=== PATIENT | male | born 1970 | race Caucasian/White ===

== ENCOUNTER 2022-11-07 16:33 | Emergency (ER) | payer OTHER, SELFPAY ==
[2022-11-07 16:38] VITALS: BP 130/76; PULSE 70; O2SAT 96
[2022-11-07 17:49] VITALS: BP 133/76; PULSE 67; RESP 18; TEMP 36.5; O2SAT 98; BMI 25.0
--- NOTE | 2022-11-07 18:02 | ED_ITS ---
HPI - General Adult General Chief complaint: Skin/Abscess/Foreign Body <MARIELA Goyal - Last Filed: 11/07/22 18:03> Stated complaint: SWOLLEN LIP <MARIELA Goyal - Last Filed: 11/07/22 18:03> Time Seen by Provider: 11/07/22 19:14 <MARIELA Goyal - Last Filed: 11/07/22 18:03> Source: patient and RN notes reviewed <Darrin Healy - Last Filed: 11/07/22 20:04> Mode of arrival: ambulatory <Darrin Healy - Last Filed: 11/07/22 20:04> Limitations: no limitations <Darrin Healy - Last Filed: 11/07/22 20:04> History of Present Illness HPI narrative: 51-year-old male past medical history significant for substance abuse currently on methadone presents for evaluation of lip pain and swelling patient reports that he 1st noticed swelling to the lower lip on the right side yesterday. When he woke up this morning the pain was significantly worse the swelling he reports has been getting worse throughout the day he has not had any recent medication changes, he has been on methadone for quite some time. He is not on any other medications, has not taken any [id number] medications denies any new foods denies any shortness of breath difficulty swallowing or change in his voice <Darrin Healy - Last Filed: 11/07/22 20:04> Related Data Home medications: Previous Rx's Medication Instructions Recorded clindamycin HCl 300 mg capsule 300 mg PO TID #21 caps 11/07/22 ibuprofen 600 mg tablet 600 mg PO TID PRN pain #20 tabs 11/07/22 valacyclovir 1 gram tablet 1,000 mg PO TID #21 tabs 11/07/22 <MARIELA Goyal - Last Filed: 11/07/22 18:03> Allergies/adverse reactions: Allergies Allergy/AdvReac Type Severity Reaction Status Date / Time shellfish derived Allergy Severe THROAT Verified 11/07/22 17:49 [SHELLFISH DERIVED] SWELLING <MARIELA Goyal - Last Filed: 11/07/22 18:03> Review of Systems Constitutional: Constitutional: Reports as per HPI, Denies chills, Denies fatigue, Denies fever(s) and Denies headache(s) <Darrin Healy - Last Filed: 11/07/22 20:04> ENT: Denies headache(s), Reports lip swelling, Denies sore throat, Denies throat swelling and Denies tongue swelling <Darrin Healy - Last Filed: 11/07/22 20:04> Cardiovascular: Cardiovascular: Denies chest pain and Denies dyspnea <Darrin Healy - Last Filed: 11/07/22 20:04> Respiratory: Respiratory: Denies cough and Denies dyspnea <Darrin Healy - Last Filed: 11/07/22 20:04> Gastrointestinal: Gastrointestinal: Denies abdominal pain, Denies constipation and Denies vomiting <Darrin Healy - Last Filed: 11/07/22 20:04> Genitourinary: Genitourinary: Denies difficulty urinating and Denies dysuria <Darrin Healy - Last Filed: 11/07/22 20:04> Neurologic: Denies headache(s) and Denies focal weakness <Darrin Healy - Last Filed: 11/07/22 20:04> Endocrine: Endocrine: Denies fatigue <Darrin Healy - Last Filed: 11/07/22 20:04> Allergic/Immunologic: Allergic/Immunologic: Reports lip swelling, Denies throat swelling and Denies tongue swelling <Darrin Healy - Last Filed: 11/07/22 20:04> [facility] Past Medical History Medical History: Medical History (Updated 11/07/22 @ 19:53 by Darrin Healy) Abscess Hx of substance abuse <MARIELA Goyal - Last Filed: 11/07/22 18:03> Social History Social History: Social History Alcohol intake: never Smoked in Last 30 Days: Yes Use of substances other than those prescribed or required for medical reasons: No Advance Directives: No Advance Directives Information Provided: No <MARIELA Goyal - Last Filed: 11/07/22 18:03> Physical Exam ED Vital Signs: Vital Signs - 24 hr 11/07/22 17:49 11/07/22 18:39 Temperature 97.7 F 99.2 F Pulse Rate 67 58 Respiratory Rate 18 18 Blood Pressure 133/76 106/88 Pulse Oximetry 98 100 Oxygen Delivery Method Room Air BMI result Body Mass Index 25.0 <MARIELA Goyal - Last Filed: 11/07/22 18:03> Vital Signs - 24 hr 11/07/22 17:49 11/07/22 18:39 Temperature 97.7 F 99.2 F Pulse Rate 67 58 Respiratory Rate 18 18 Blood Pressure 133/76 106/88 Pulse Oximetry 98 100 Oxygen Delivery Method Room Air BMI result Body Mass Index 25.0 <Darrin StackFrontier - Last Filed: 11/07/22 20:04> Const General: healthy appearing, comfortable, no acute distress, alert and awake <Darrin O - Last Filed: 11/07/22 20:04> Nutritional Appearance: well nourished <Darrin - Last Filed: 11/07/22 20:04> Orientation/consciousness: patient oriented x3 <Darrin - Last Filed: 11/07/22 20:04> HENMT Other: The lip is dry, cracked. patient is a markedly edematous lower lip right greater than left. the area is significantly indurated without fluctuance. There is some erythema extending down to below the lip margin onto the chin. The patient does have right submandibular lymphadenopathy. There is no intraoral or retropharyngeal edema or lesions. <Darrin StackXander - Last Filed: 11/07/22 20:04> Head: Yes normocephalic and Yes atraumatic <Darrin OFrontier - Last Filed: 11/07/22 20:04> Ears: external ears normal and TM's normal bilaterally <Darrin O - Last Filed: 11/07/22 20:04> Mouth: Normal oral and palatal mucosa present and lip abnormal <Darrin O - Last Filed: 11/07/22 20:04> Throat: Yes posterior oropharynx normal <Darrin OXander - Last Filed: 11/07/22 20:04> Eyes Eyelids: Yes eyelids normal <Darrin StackXander - Last Filed: 11/07/22 20:04> Conjunctivae: conjunctivae normal <Darrin OFrontier - Last Filed: 11/07/22 20:04> Sclerae: sclerae normal <Darrin Last Filed: 11/07/22 20:04> Corneas: corneas normal <Darrin Last Filed: 11/07/22 20:04> Pupils: Equal, round and reactive pupils present <Darrin Last Filed: 11/07/22 20:04> EOM: EOMs intact bilaterally < Last Filed: 11/07/22 20:04> Neck Neck: Yes full ROM < Last Filed: 11/07/22 20:04> Resp Effort & Inspection: normal respiratory effort, able to speak in complete sentences, no audible wheezes and not labored < Last Filed: 11/07/22 20:04> Auscultation: clear to auscultation bilaterally < Last Filed: 11/07/22 20:04> Cardio Rate: regular rate < Last Filed: 11/07/22 20:04> Rhythm: regular rhythm < Last Filed: 11/07/22 20:04> GI Inspection: No distended < Last Filed: 11/07/22 20:04> Palpation (GI): Soft to palpation, not firm, nontender, no guarding and not rigid < Last Filed: 11/07/22 20:04> Auscultation: normoactive bowel sounds < Last Filed: 11/07/22 20:04> Skin General skin exam: no rashes or lesions noted and elasticity normal < Last Filed: 11/07/22 20:04> Neuro General: patient oriented x3 < Last Filed: 11/07/22 20:04> Cranial nerves: Yes CN's II-XII intact bilaterally, Yes Equal, round and reactive pupils p resent and Yes Bilaterally intact EOM present < Last Filed: 11/07/22 20:04> Cognition (Neuro): normal cognition <Darrin Sreekanth Last Filed: 11/07/22 20:04> Extrem Other: Moving all extremities well without any obvious deformities <Darrin Healy - Last Filed: 11/07/22 20:04> Course Course Course Narrative: RME performed by Lilibeth Mccoy PA-C. Patient is a 51 year old male presenting to the emergency department with a swollen lower lip. Patient is on methadone. Patient is not on lisinopril. Denies eating anything new. Labs ordered. Patient placed back in the waiting room pending room availability and results. <MARIELA Goyal - Last Filed: 11/07/22 18:03> Medications Administered Discontinued Medications Generic Name Dose Route Start Last Admin Trade Name Freq PRN Reason Stop Dose Admin Clindamycin Phosphate 300 mg in 50 mls @ 100 mls/hr 11/07/22 19:31 11/07/22 19:53 Cleocin IV 11/07/22 20:00 100 mls/hr ONCE ONE Administration Ketorolac Tromethamine 30 mg 11/07/22 19:28 11/07/22 19:53 Ketorolac Tromethamine 30 Mg/Ml Vial IVPUSH 11/07/22 19:29 30 mg ONCE ONE Administration <MARIELA Goyal - Last Filed: 11/07/22 18:03> Medications Administered Discontinued Medications Generic Name Dose Route Start Last Admin Trade Name Freq PRN Reason Stop Dose Admin Clindamycin Phosphate 300 mg in 50 mls @ 100 mls/hr 11/07/22 19:31 11/07/22 19:53 Cleocin IV 11/07/22 20:00 100 mls/hr ONCE ONE Administration Ketorolac Tromethamine 30 mg 11/07/22 19:28 11/07/22 19:53 Ketorolac Tromethamine 30 Mg/Ml Vial IVPUSH 11/07/22 19:29 30 mg ONCE ONE Administration <Darrin Healy - Last Filed: 11/07/22 20:04> Medical Decision Making Medical Decision Making MDM Narrative: 51-year-old male reports medical history only of plica abuse currently on methadone. He reports he is not currently taking any street drugs. The patient has an edematous lips. He has erythema and induration. The erythema extends inferior to the lip border. This raises some concern for infectious process. We will call the patient with clindamycin to cover both skin and oral maureen. The patient reports a history of cold sores and we will add on valacyclovir in case this is an atypical herpes presentation. There is no airway involvement, no intraoral involvement. The patient reports he has a PCP and follow up with. is also advised to return for any new or worsening symptoms <Darrin Healy - Last Filed: 11/07/22 20:04> Differential Diagnosis cellulitis Abscess Drew's angina Angioedema Herpes zoster <Darrin Healy - Last Filed: 11/07/22 20:04> Lab Data Result Diagrams: 11/07/22 18:34 11/07/22 18:34 <MARIELA Goyal - Last Filed: 11/07/22 18:03> Labs: Lab Results 11/07/22 11/07/22 11/07/22 Range/Units 18:34 18:34 18:34 WBC 12.7 H (4.8-10.8) X10*3/uL RBC 4.52 L (4.60-5.80) X10*6/uL Hgb 13.1 L (14.0-18.0) g/dl Hct 38.1 L (42.0-52.0) % MCV 84.3 (80.0-98.0) fL MCH 29.0 (27.0-33.0) pg MCHC 34.4 (31.0-36.0) g/dl RDW 12.1 (11.0-16.0) % Plt Count 180 (160-400) X10*3/uL MPV 9.2 L (9.4-12.4) fL Immature Gran % (Auto) 0.6 H (0.0-0.4) % Neut % (Auto) 77.8 H (45-73) % Lymph % (Auto) 9.3 L (20-40) % Harmon % (Auto) 11.8 H (2-11) % Eos % (Auto) 0.3 (0-4) % Baso % (Auto) 0.2 (0-2) % Lymph # (Auto) 1.2 (1.2-4.9) X10*3/uL Harmon # (Auto) 1.5 H (0.1-1.2) X10*3/uL Eos # (Auto) 0.0 (0.0-0.4) X10*3/uL Baso # (Auto) 0.0 (0.0-0.2) X10*3/uL Abs Immat Gran (auto) 0.07 H (0.00-0.03) X10*3/uL Absolute Neuts (auto) 9.9 H (2.0-8.3) x10*3/uL Absolute Nucleated RBC 0.000 (0.0-0.012) X10*3/uL Nucleated RBC % (auto) 0.0 (0.0-0.2) /100WBC ESR 60 H (0-15) MM/HR Sodium 142 (135-145) mmol/L Potassium 3.5 (3.3-5.1) mmol/L Chloride 101 (96-108) mmol/L Carbon Dioxide 29 (22-29) mmol/L Anion Gap 16 (12-20) BUN 12 (9-16) mg/dL Creatinine 0.87 (0.5-1.4) mg/dL Estim Creat Clear Calc 92.8 Estimated GFR > 60 Random Glucose 101 (60-115) mg/dL Calcium 9.0 (8.4-10.2) mg/dL Magnesium 1.8 (1.6-2.6) mg/dL Total Bilirubin 0.7 (0.0-1.0) mg/dL AST 15 (5-37) U/L ALT 8 (0-40) U/L Alkaline Phosphatase 77 (39-117) U/L C-Reactive Protein 14.59 H (< or = 0.50) mg/dL Total Protein 6.5 (6.5-8.0) g/dL Albumin 3.8 (3.5-5.0) g/dL <MARIELA Goyal - Last Filed: 11/07/22 18:03> Lab Results 11/07/22 11/07/22 11/07/22 Range/Units 18:34 18:34 18:34 WBC 12.7 H (4.8-10.8) X10*3/uL RBC 4.52 L (4.60-5.80) X10*6/uL Hgb 13.1 L (14.0-18.0) g/dl Hct 38.1 L (42.0-52.0) % MCV 84.3 (80.0-98.0) fL MCH 29.0 (27.0-33.0) pg MCHC 34.4 (31.0-36.0) g/dl RDW 12.1 (11.0-16.0) % Plt Count 180 (160-400) X10*3/uL MPV 9.2 L (9.4-12.4) fL Immature Gran % (Auto) 0.6 H (0.0-0.4) % Neut % (Auto) 77.8 H (45-73) % Lymph % (Auto) 9.3 L (20-40) % Harmon % (Auto) 11.8 H (2-11) % Eos % (Auto) 0.3 (0-4) % Baso % (Auto) 0.2 (0-2) % Lymph # (Auto) 1.2 (1.2-4.9) X10*3/uL Harmon # (Auto) 1.5 H (0.1-1.2) X10*3/uL Eos # (Auto) 0.0 (0.0-0.4) X10*3/uL Baso # (Auto) 0.0 (0.0-0.2) X10*3/uL Abs Immat Gran (auto) 0.07 H (0.00-0.03) X10*3/uL Absolute Neuts (auto) 9.9 H (2.0-8.3) x10*3/uL Absolute Nucleated RBC 0.000 (0.0-0.012) X10*3/uL Nucleated RBC % (auto) 0.0 (0.0-0.2) /100WBC ESR 60 H (0-15) MM/HR Sodium 142 (135-145) mmol/L Potassium 3.5 (3.3-5.1) mmol/L Chloride 101 (96-108) mmol/L Carbon Dioxide 29 (22-29) mmol/L Anion Gap 16 (12-20) BUN 12 (9-16) mg/dL Creatinine 0.87 (0.5-1.4) mg/dL Estim Creat Clear Calc 92.8 Estimated GFR > 60 Random Glucose 101 (60-115) mg/dL Calcium 9.0 (8.4-10.2) mg/dL Magnesium 1.8 (1.6-2.6) mg/dL Total Bilirubin 0.7 (0.0-1.0) mg/dL AST 15 (5-37) U/L ALT 8 (0-40) U/L Alkaline Phosphatase 77 (39-117) U/L C-Reactive Protein 14.59 H (< or = 0.50) mg/dL Total Protein 6.5 (6.5-8.0) g/dL Albumin 3.8 (3.5-5.0) g/dL <Darrin Healy - Last Filed: 11/07/22 20:04> Discharge Plan Discharge Clinical Impression: Cellulitis of lip <MARIELA Goyal - Last Filed: 11/07/22 18:03> Patient Disposition: Home, Self-Care <MARIELA Goyal - Last Filed: 11/07/22 18:03> Prescriptions: New clindamycin HCl 300 mg capsule 300 mg PO TID Qty: 21 0RF valacyclovir 1 gram tablet 1,000 mg PO TID Qty: 21 0RF ibuprofen 600 mg tablet 600 mg PO TID PRN (Reason: pain) Qty: 20 0RF <MARIELA Goyal - Last Filed: 11/07/22 18:03>
[2022-11-07 18:39] VITALS: BP 106/88; PULSE 58; RESP 18; TEMP 37.3; O2SAT 100
[2022-11-07 18:39] LABS: MANUAL DIFF FLAG NO
[2022-11-07 18:42] LABS: Basophils Percent Auto 0.2 % (0-2); Eosinophils Percent Auto 0.3 % (0-4); Hematocrit 38.1 % (42.0-52.0); Hemoglobin 13.1 g/dl (14.0-18.0); Imm Gran Abs Auto 0.07 X10*3/uL (0.00-0.03); Imm Gran Pct Auto 0.6 % (0.0-0.4); Lymphocytes Absolute Auto 1.2 X10*3/uL (1.2-4.9); Lymphocytes Percent Auto 9.3 % (20-40); Mean Corpuscular HGB Conc 34.4 g/dl (31.0-36.0); Mean Corpuscular Volume 84.3 fL (80.0-98.0); Mean Platelet Volume 9.2 fL (9.4-12.4); Monocytes Absolute Auto 1.5 X10*3/uL (0.1-1.2); Monocytes Percent Auto 11.8 % (2-11); Neutrophils Absolute Auto 9.9 x10*3/uL (2.0-8.3); Neutrophils Percent Auto 77.8 % (45-73); Platelet Count 180 X10*3/uL (160-400); Red Blood Count 4.52 X10*6/uL (4.60-5.80); Red Cell Distribution Width 12.1 % (11.0-16.0); White Blood Count 12.7 X10*3/uL (4.8-10.8)
--- NOTE | 2022-11-07 18:55 | PC.NURSE ---
pt AOx3, VSS. swelling noted to lower lip mostly on the right side, begining yesterday but increasing today. Pt not having difficulty breathing, but reports 10/10 pain in the area. No tongue swelling noted.
[2022-11-07 18:57] LABS: Alanine Aminotransferase 8 U/L (0-40); Albumin Level 3.8 g/dL (3.5-5.0); Alkaline Phosphatase 77 U/L (39-117); Anion Gap 16 (12-20); Aspartate Amino Transferase 15 U/L (5-37); Bilirubin Total 0.7 mg/dL (0.0-1.0); Blood Urea Nitrogen 12 mg/dL (9-16); C Reactive Protein 14.59 mg/dL (< or = 0.50); Carbon Dioxide 29 mmol/L (22-29); Chloride 101 mmol/L (96-108); Creatinine Clr Calc Pharmacy 92.8; Estimated Glomerular Filt Rate > 60; Glucose Random 101 mg/dL (60-115); Magnesium 1.8 mg/dL (1.6-2.6); Potassium 3.5 mmol/L (3.3-5.1); Sodium 142 mmol/L (135-145); Total Protein 6.5 g/dL (6.5-8.0)
[2022-11-07 19:25] LABS: Erythrocyte Sedimentation Rate 60 MM/HR (0-15)
[2022-11-07] MEDS: Clindamycin Phosphate/D5W 300 MG/50 ML PIGGYBACK 100 MG IV (19:53)
[2022-11-07] MEDS: Ketorolac Tromethamine 30 MG/ML VIAL IVPUSH (19:53)
--- NOTE | 2022-11-07 19:55 | PC.NURSE ---
patient a&ox3, pt continues to speak in full sentences/no tongue swelling noted, pt rt lip swelling only, pt medicated with pain meds per order, IV abx started per order, per provider pt did not need blood cultures drawn, call emanuel within reach, will continue to monitor.
[2022-11-07 20:28] VITALS: BP 121/78; PULSE 64; RESP 18; TEMP 37.2; O2SAT 99
== END 2022-11-07 20:54 | disposition home or self-care (01) ==
PROVIDERS: Physician Assistant Medical; Emergency Provider Student in an Organized Health Care Education/Training Program; PCP Internal Medicine
DX: K13.0 Diseases of lips (principal); F19.10 Other psychoactive substance abuse, uncomplicated; F11.20 Opioid dependence, uncomplicated
CPT/HCPCS: 36415; 80053; 83735; 85025; 85652; 86140; 96365; 96375; 99284; 99285; J1885

== ENCOUNTER 2023-05-08 15:16 | Emergency (ER) | payer OTHER, SELFPAY ==
[2023-05-08 16:58] VITALS: BP 144/84; PULSE 73; RESP 18; TEMP 36.8; O2SAT 100; BMI 26.3
--- NOTE | 2023-05-08 17:50 | ED.SKABFB ---
HPI - Skin/Abscess/Foreign Bdy General Chief complaint: Skin/Abscess/Foreign Body Stated complaint: Cyst under R arm Time Seen by Provider: 05/08/23 17:25 Source: patient Mode of arrival: ambulatory Limitations: no limitations History of Present Illness HPI narrative: Patient is a 52 year old male with no PMH who presents to the ED due to an abscess in his right underarm. He reports that it started about a week ago and started off as a little ball under his arm, which has growth in size over time. He denies any trauma to the area or a history of getting cysts. He reports 12 pain and states that the area is erythematous and warm. He denies experiencing fever, chills or seeing any pus or discharge draining from the affected site. Patient has not taken anything OTC to help with the pain. Related Data Previous Rx's Medication Instructions Recorded clindamycin HCl 300 mg capsule 300 mg PO TID #21 caps 11/07/22 ibuprofen 600 mg tablet 600 mg PO TID PRN pain #20 tabs 11/07/22 valacyclovir 1 gram tablet 1,000 mg PO TID #21 tabs 11/07/22 cephalexin 500 mg capsule 500 mg PO BID #14 caps 05/08/23 doxycycline monohydrate 100 mg 100 mg PO BID #14 caps 05/08/23 capsule ibuprofen 800 mg tablet 800 mg PO Q8H PRN pain #30 tabs 05/08/23 Allergies Allergy/AdvReac Type Severity Reaction Status Date / Time No Known Allergies Allergy Verified 05/08/23 17:47 Review of Systems Review of Systems: Yes all other systems are reviewed and are negative Constitutional: Constitutional: Reports no additional constitutional complaints, Denies body ache(s), Denies chills, Denies fever(s), Denies headache(s) and Denies weakness Eyes: Eyes: Reports no additional eye complaints and Denies change in vision ENT: Reports system reviewed and no additional complaints, except as documented, Denies dizziness, Denies headache(s), Denies nasal congestion, Denies nasal discharge and Denies neck pain Cardiovascular: Cardiovascular: Reports no additional cardiovascular complaints, Denies chest pain, Denies leg edema and Denies dyspnea Respiratory: Respiratory: Reports no additional respiratory complaints, Denies cough and Denies dyspnea Gastrointestinal: Gastrointestinal: Reports no additional gastrointestinal complaints, Denies abdominal pain, Denies diarrhea, Denies nausea and Denies vomiting Genitourinary: Genitourinary: Denies urinary incontinence Musculoskeletal: Musculoskeletal: Reports no additional musculoskeletal complaints, Denies back pain, Denies arthralgias, Denies joint swelling, Denies neck pain, Denies numbness and Denies tingling Integumentary/Breasts: Skin/Breast: Reports system reviewed and no additional complaints, except as docu, Reports furuncle, Reports swelling, Reports change in pigmentation, Reports erythema, Denies rash and Reports skin pain Neurologic: Reports system reviewed and no additional complaints, except as documented, Denies Abnormal speech present, Denies dizziness, Denies headache(s), Denies numbness, Denies tingling and Denies weakness [facility] Past Medical History Attestation statement: The following information was validated with the patient. Source: old records reviewed and nursing notes reviewed Medical History Hx of substance abuse Abscess Social History Social History Alcohol intake: never Advance Directives: No Advance Directives Information Provided: No Physical Exam Vital Signs: Vital Signs: Last Vital Signs Temp 98.3 F 05/08/23 16:58 Pulse 73 05/08/23 16:58 Resp 18 05/08/23 16:58 BP 144/84 H 05/08/23 16:58 Pulse Ox 100 05/08/23 16:58 O2 Del Method Room Air 05/08/23 16:58 BMI result Body Mass Index 26.3 Const: General: cooperative, healthy appearing, comfortable and no acute distress Orientation/consciousness: patient oriented x3 Limitations: no limitations HEENT: Head: Yes normal to inspection Ears: hearing grossly normal bilaterally General nose exam: Normal external nose present Face and sinus: Yes normal facial exam Mouth: Normal oral and palatal mucosa present Throat: Yes posterior oropharynx normal Eyes: General: appearance normal, both eyes and all related structures Pupils: Equal, round and reactive pupils present Neck: Neck: Yes normal visual inspection Chest: Chest palpation & inspection: normal inspection of the chest Chest/axillae images: 1. +large abscess with fluctuance and surrounding erythema/warmth and lymphadenopathy Resp: Effort & Inspection: normal respiratory effort Auscultation: clear to auscultation bilaterally Cardio: Rate: regular rate Rhythm: regular rhythm Peripheral pulses: Peripheral pulses 2+ throughout GI: Inspection: Yes normal to inspection Palpation (GI): Soft to palpation and nontender Auscultation: normal bowel sounds Back/Spine/Pelvis: Thoracic/Lumbar Spine: thoracic and lumbar spine normal to inspection Skin: General skin exam: no rashes or lesions noted Neuro: General: patient oriented x3, no focal motor deficits and normal sensation to monofilament Cranial nerves: Yes Equal, round and reactive pupils present Cognition (Neuro): normal cognition Speech: No Abnormal speech present Gait exam (Neuro): Normal gait present Motor exam (neuro): 5/5 motor strength present throughout Extrem: General: Yes normal to inspection Medications Administered Discontinued Medications Generic Name Dose Route Start Last Admin Trade Name Louisq PRN Reason Stop Dose Admin Ketorolac Tromethamine 60 mg 05/08/23 18:19 05/08/23 18:21 Ketorolac Tromethamine 60 Mg/2 Ml Vial IM 05/08/23 18:20 60 mg ONCE ONE Administration Lidocaine HCl 5 ml 05/08/23 17:47 05/08/23 18:13 Lidocaine Hcl 1 % Mpf 5 Ml Vial SUBCUT 05/08/23 17:48 5 ml ONCE ONE Administration Lidocaine HCl 5 ml 05/08/23 17:47 05/08/23 18:14 Lidocaine Hcl 1 % Mpf 5 Ml Vial SUBCUT 05/08/23 17:48 5 ml ONCE ONE Administration Medical Decision Making Medical Decision Making [facility] Narrative: Patient is a 52 year old male with no PMH who presents to the ED due to an abscess in his right underarm. He reports that it started about a week ago and started off as a little ball under his arm, which has growth in size over time. He denies any trauma to the area or a history of getting cysts. He reports 12/10 pain and states that the area is erythematous and warm. He denies experiencing fever, chills or seeing any pus or discharge draining from the affected site. Patient has not taken anything OTC to help with the pain. see procedure note for incision and drainage. Patient will be discharged home with oral antibiotics and strict return precautions. Differential Diagnosis Differential Diagnoses: The differential diagnosis associated with the presentation includes abscess cellulitis Gradual onset so less likely necrotizing fasciitis Compartments are soft and compressible so the low concern for compartment syndrome Admission/Observation Consideration of admission/observation: Escalation of care including admission/observation considered The patient nontoxic, afebrile. Cellulitis is not circumferential. There is no evidence of compartment syndrome or necrotizing fasciitis. No need for further imaging or IV antibiotics. Independent Historian Clinical information obtained from an independent historian. History obtained from or confirmed by: Spouse Prescription Management I considered prescription management with: Antibiotic see discussion above Procedures Abscess I/D Site: upper extremity (axilla) Side (if applicable): right Local Anesthetic: lidocaine 1% Amount of anesthesia used (mL): 8 Technique: incised with blade Amount of fluid expressed (mL): 30 Sent for culture/gram staining?: No Irrigation: No Packing used?: iodoform Discharge Plan Discharge Clinical Impression: Abscess of skin or subcutaneous tissue Patient Disposition: Home, Self-Care Instructions: Abscess (ED), Abscess Incision and Drainage (DC) Additional Instructions: return in 48 hours for packing removal if the packing falls out before then you do not need to return monitor the site and return for increasing redness, fever, swelling Prescriptions: New cephalexin 500 mg capsule 500 mg PO BID Qty: 14 0RF doxycycline monohydrate 100 mg capsule 100 mg PO BID Qty: 14 0RF ibuprofen 800 mg tablet 800 mg PO Q8H PRN (Reason: pain) Qty: 30 0RF No Action clindamycin HCl 300 mg capsule 300 mg PO TID Qty: 21 0RF valacyclovir 1 gram tablet 1,000 mg PO TID Qty: 21 0RF ibuprofen 600 mg tablet 600 mg PO TID PRN (Reason: pain) Qty: 20 0RF Referrals: Rupesh Moon III, MD [Primary Care Provider] - 1 week
[2023-05-08] MEDS: Lidocaine HCl 1 % MPF 5 ML VIAL SUBCUT ×2 (18:13→18:14)
[2023-05-08] MEDS: Ketorolac Tromethamine 60 MG/2 ML VIAL IM (18:21)
== END 2023-05-08 18:55 | disposition home or self-care (01) ==
PROVIDERS: Emergency Provider Emergency Medicine Emergency Medical Services; PCP Internal Medicine
DX: L02.411 Cutaneous abscess of right axilla (principal)
CPT/HCPCS: 10060; 96372; 99283; 99284; J1885

== ENCOUNTER 2023-05-11 11:21 | Emergency (ER) | payer OTHER, SELFPAY ==
[2023-05-11 12:02] VITALS: BP 144/73; PULSE 68; RESP 18; TEMP 36.8; O2SAT 98; BMI 25.1
--- NOTE | 2023-05-11 12:11 | ED.SKABFB ---
HPI - Skin/Abscess/Foreign Bdy General Chief complaint: General Medical Stated complaint: Needs packing removed Time Seen by Provider: 05/11/23 12:11 Source: patient, RN notes reviewed and old records reviewed Mode of arrival: ambulatory History of Present Illness HPI narrative: 52-year-old male with no significant past medical history presenting to ED for packing removal from abscess in right axilla s/p I & D with packing placement in our ED on 05/08. Reports continued drainage from area. Otherwise reports symptomatic improvement, denies fever/chills, increasing swelling/redness. Reports compliance with previously prescribed Keflex and doxy. MD complaint: abscess/boil Related Data Previous Rx's Medication Instructions Recorded clindamycin HCl 300 mg capsule 300 mg PO TID #21 caps 11/07/22 ibuprofen 600 mg tablet 600 mg PO TID PRN pain #20 tabs 11/07/22 valacyclovir 1 gram tablet 1,000 mg PO TID #21 tabs 11/07/22 cephalexin 500 mg capsule 500 mg PO BID #14 caps 05/08/23 doxycycline monohydrate 100 mg 100 mg PO BID #14 caps 05/08/23 capsule ibuprofen 800 mg tablet 800 mg PO Q8H PRN pain #30 tabs 05/08/23 Allergies Allergy/AdvReac Type Severity Reaction Status Date / Time No Known Allergies Allergy Verified 05/08/23 17:47 Review of Systems Review of Systems: Constitutional: No Fever, No Chills ENT/Mouth: No Ear Pain, No Nasal Congestion, No sore throat, No Rhinorrhea, No Swallowing Difficulty Cardiovascular: No Chest Pain, No SOB Respiratory: No Cough, No Sputum, No Wheezing Gastrointestinal: No Nausea, No Vomiting, No Abdominal pain Musculoskeletal: No joint pain, No Myalgias, No Joint Swelling Skin: + Skin Lesions, No rash Neuro: No Weakness Yes all other systems are reviewed and are negative Constitutional: Constitutional: Reports as per HPI [facility] Past Medical History Attestation statement: The following information was validated with the patient. Source: old records reviewed Medical History Hx of substance abuse Abscess Social History Social History Alcohol intake: never Physical Exam Vital Signs: Vital Signs: Last Vital Signs Temp 98.2 F 05/11/23 12:02 Pulse 68 05/11/23 12:02 Resp 18 05/11/23 12:02 BP 144/73 H 05/11/23 12:02 Pulse Ox 98 05/11/23 12:02 O2 Del Method Room Air 05/11/23 12:02 BMI result Body Mass Index 25.1 Const: General: cooperative, healthy appearing and no acute distress Orientation/consciousness: patient oriented x3 Limitations: no limitations HEENT: Head: Yes normal to inspection and Yes atraumatic Ears: hearing grossly normal bilaterally General nose exam: Normal external nose present Face and sinus: Yes normal facial exam Eyes: General: appearance normal, both eyes and all related structures EOM: EOMs intact bilaterally Neck: Neck: Yes normal visual inspection and Yes no meningeal signs Resp: Effort & Inspection: normal respiratory effort and no respiratory distress Cardio: Rate: regular rate Skin: Other: Abscess noted to right axilla with packing in place. Packing removed. Bloody/slight pus drainage expressed from area. Patient refused re-packing. Normal surrounding erythema, + induration, no fluctuance. No warmth. No streaking. Rashes: no rashes Wounds: no wounds Neuro: General: patient oriented x3, tone normal and no meningeal signs Cranial nerves: Yes CN's II-XII intact bilaterally Gait exam (Neuro): Normal gait present Extrem: General: Yes normal to inspection Medical Decision Making Medical Decision Making MDM Narrative: 52-year-old male with no significant past medical history presenting to ED for packing removal from abscess in right axilla s/p I & D with packing placement in our ED on 05/08. On exam vital signs stable, NAD, nontoxic appearing, physical exam as above. Packing removed from abscess from right axilla with bloody/slight pus drainage expressed. Patient refused repacking. Appears appropriately healing, recommended continuation of antibiotics until completion, warm compresses, and to continue expressing drainage from area at home. Recommend re-evaluation in 3-4 days. Results discussed with patient including worrisome signs and symptoms and strict return precautions, and when to return to the emergency department. They verbalized understanding and feel safe for discharge at this time. Differential Diagnosis Differential Diagnoses: The differential diagnosis associated with the presentation includes As above Independent Historian Clinical information obtained from an independent historian. History obtained from or confirmed by: Other External Record Review External record reviewed: Inpatient record, Office record, Outpatient record, Prior outpatient labs, Prior outpatient radiology, Primary care record and Outside ED record Tests considered The following testing was considered but not selected: As above Prescription Management I considered prescription management with: Pain Medication and Antibiotic Discharge Plan Discharge Clinical Impression: Abscess packing removal Patient Disposition: Home, Self-Care Instructions: Abscess Follow-up (ED) Additional Instructions: Continue taking previously prescribed antibiotics. Apply warm compresses If area becomes increasingly swollen, red, has pus drainage or your fever/unremitting pain return to the ED Please be re-evaluated in 3-4 days Prescriptions: No Action clindamycin HCl 300 mg capsule 300 mg PO TID Qty: 21 0RF valacyclovir 1 gram tablet 1,000 mg PO TID Qty: 21 0RF ibuprofen 600 mg tablet 600 mg PO TID PRN (Reason: pain) Qty: 20 0RF cephalexin 500 mg capsule 500 mg PO BID Qty: 14 0RF doxycycline monohydrate 100 mg capsule 100 mg PO BID Qty: 14 0RF ibuprofen 800 mg tablet 800 mg PO Q8H PRN (Reason: pain) Qty: 30 0RF Referrals: Rupesh Moon III, MD [Primary Care Provider] - 5 days
== END 2023-05-11 12:21 | disposition home or self-care (01) ==
PROVIDERS: Emergency Provider Emergency Medicine; PCP Internal Medicine
DX: Z48.00 Encounter for change or removal of nonsurgical wound dressing (principal); L02.411 Cutaneous abscess of right axilla
CPT/HCPCS: 99282